=== PATIENT | female | born 1980 | race African-American/Black ===

== ENCOUNTER 2022-10-05 14:38 | Emergency (ER) | payer OTHER ==
[2022-10-05 14:53] VITALS: BP 177/100; PULSE 95; RESP 18; TEMP 98.2; BMI 31.0
[2022-10-05] MEDS ORDERED: NITROGLYCERIN 2% OINTMENT - 1GM PACKET TD ONE ×2 (16:13→16:16)
[2022-10-05] MEDS ORDERED: traMADol HCL 50 MG TABLET PO ONE (16:18)
[2022-10-05] MEDS ORDERED: traMADol HCL 50 MG TABLET ONE (16:24)
== END 2022-10-05 17:59 | disposition home or self-care (01) ==
LOC: JER 14:38
DX: K64.9 Unspecified hemorrhoids (principal)
CPT/HCPCS: 99283-25

== ENCOUNTER 2022-10-09 14:07 | Emergency (ER) | payer OTHER ==
[2022-10-09 14:19] VITALS: BP 142/93; PULSE 84; TEMP 98.9; BMI 30.4
[2022-10-09 16:25] LABS: HCG,QUALITATIVE URINE Negative
[2022-10-09 16:32] LABS: PH,URINE 5.5 (5.0-8.0); URINE APPEARANCE CLEAR; URINE BILIRUBIN NEGATIVE (NEGATIVE); URINE COLOR YELLOW; URINE GLUCOSE (UA) NEGATIVE (NEGATIVE); URINE KETONE TRACE (NEGATIVE); URINE LEUK ESTERASE NEGATIVE (NEGATIVE); URINE NITRITE NEGATIVE (NEGATIVE); URINE PROTEIN NEGATIVE (NEGATIVE); URINE UROBILINOGEN 0.2 mg/dL (0.2-1.0)
[2022-10-09 17:01] LABS: BASO % 0.3 % (0-2.0); HEMATOCRIT 35.3 % (32.4-45.2); HEMOGLOBIN 11.4 GM/dL (10.7-15.3); LYMPH % 48.8 % (8-40); MCH 27.1 pg (25.7-33.7); MCHC 32.4 g/dl (32.0-36.0); MEAN CELL VOLUME 83.7 fl (80-96); MEAN PLT VOLUME 8.4 fl (7.5-11.1); MONO % 4.9 % (3.8-10.2); PLATELET COUNT 262 10^3/uL (134-434); RBC 4.22 M/mm3 (3.60-5.2); RDW 15.5 % (11.6-15.6); WHITE BLOOD COUNT 6.5 K/mm3 (4.0-10.0)
[2022-10-09 17:14] VITALS: RESP 18
[2022-10-09 17:41] LABS: CALCIUM 9.3 mg/dL (8.5-10.1)
[2022-10-09 17:42] LABS: ALBUMIN 3.6 g/dl (3.4-5.0); BLOOD UREA NITROGEN 8.7 mg/dL (7-18)
[2022-10-09 17:45] LABS: CREATININE 0.7 mg/dL (0.55-1.3)
[2022-10-09 17:46] LABS: BILIRUBIN,TOTAL 0.3 mg/dL (0.2-1); TOT PROT 8.1 g/dl (6.4-8.2)
== END 2022-10-09 21:33 | disposition home or self-care (01) ==
LOC: JER 14:07
DX: K62.89 Other specified diseases of anus and rectum (principal)
CPT/HCPCS: 36415; 74177-TC; 80053; 81003; 82962; 84703; 85025; 87086; 99285-25